=== PATIENT | male | born 1965 | race Caucasian/White ===

== ENCOUNTER 2017-08-17 09:44 | Observation (INO) | payer OTHER ==
[~2017-08-17] VITALS: Ht 172.7 cm; Wt 68.0 kg
[~2017-08-17 09:44] MED LIST: ASPI325T PO; PERC5TAB12 PO; ZANT150T2 PO
[2017-08-17 10:06] VITALS: BP 134/78; PULSE 73; RESP 16; TEMP 98; O2SAT 99
--- NOTE | 2017-08-17 10:32 | RADRPT ---
EXAM DATE/TIME: 08/17/2017 10:18 [facility] COMPARISON: No previous studies available for comparison. INDICATIONS : Chest pain. MEDICAL HISTORY : None. SURGICAL HISTORY : None. ENCOUNTER: Initial ACUITY: 1 day PAIN SCORE: 3/10 LOCATION: Bilateral chest FINDINGS: PA and lateral views of the chest demonstrate the lungs to be symmetrically aerated without evidence of mass, infiltrate or effusion. The cardiomediastinal contours are unremarkable. Osseous structure s are intact. CONCLUSION: Normal examination for a patient of this age. Home Lombardo MD on August 17, 2017 at 10:30 Board Certified Radiologist. This report was verified electronically.
[2017-08-17 11:02] LABS: AUTOMATED NEUTROPHIL # 3.3 TH/MM3 (1.8-7.7); BASOPHIL # 0.1 TH/MM3 (0-0.2); BASOPHIL % 2.4 % (0.0-2.0); EOSINOPHIL # 0.2 TH/MM3 (0-0.4); EOSINOPHIL % 3.2 % (0.0-4.0); HEMOGLOBIN 16.2 GM/DL (13.0-17.0); LYMPH % 22.9 % (9.0-44.0); LYMPHOCYTE # 1.2 TH/MM3 (1.0-4.8); MEAN CELL VOLUME 85.4 FL (80.0-100.0); MEAN CORPUSCULAR HEMOGLOBIN 29.5 PG (27.0-34.0); MEAN CORPUSCULAR HGB CONC 34.5 % (32.0-36.0); MEAN PLATELET VOLUME 8.2 FL (7.0-11.0); MONO % 7.5 % (0.0-8.0); MONOCYTE # 0.4 TH/MM3 (0-0.9); PLATELET COUNT 270 TH/MM3 (150-450); RED CELL DISTRIBUTION WIDTH 13.1 % (11.6-17.2); WHITE BLOOD COUNT 5.2 TH/MM3 (4.0-11.0)
[2017-08-17 11:12] LABS: PROTHROMBIN TIME - PATIENT 10.5 SEC (9.8-11.6)
[2017-08-17 11:18] LABS: BICARBONATE 26.6 MEQ/L (21.0-32.0); BLOOD UREA NITROGEN 24 MG/DL (7-18); CALCIUM 9.1 MG/DL (8.5-10.1); CHLORIDE 107 MEQ/L (98-107); CREATININE 1.18 MG/DL (0.60-1.30); GLOMERULAR FILTRATION RATE 65 ML/MIN (>89); GLUCOSE,RANDOM 68 MG/DL (74-106); SODIUM (NA) 140 MEQ/L (136-145)
[2017-08-17 11:23] LABS: TROPONIN I LESS THAN 0.02 NG/ML (0.02-0.05)
[2017-08-17 12:33] VITALS: BP 122/88; PULSE 71; RESP 17; O2SAT 98
[2017-08-17] MEDS ORDERED: TRAZ50TA12 PO (12:35)
[2017-08-17] MEDS ORDERED: ASPI-183 PO (12:35)
--- NOTE | 2017-08-17 12:44 | PD ---
HPI Chief Complaint: Cardiac Complaint Time Seen by Provider: 12:30 Travel History International Travel<30 days: No Contact w/Intl Traveler<30days: No Traveled to known affect area: No History of Present Illness HPI 51 y/o male presents with chest pain that started this morning and only lasted a short while. He states he had an additional episode about a month or so ago and he had a [facility] Cerv[facility]. He states they switched him to a nuclear stress test after about 45 seconds and he has not had the results of this yet. He states that he took 2 full aspirin this morning like he takes every morning for aches and pains. He denies any other concurrent complaints. Quality was sharp. Severity is currently resolved. He denies specific modifying factors. PFSH Past Medical History Chest Pain: Yes Influenza Vaccination: Yes Past Surgical History Other Surgery: Yes (HERNIA INFANT) Social History Alcohol Use: Yes (2 AR/NIGHT) Tobacco Use: No Substance Use: No Allergies-Medications (Allergen,Severity, Reaction): Coded Allergies: No Known Allergies (Unverified Adverse Reaction, Unknown, 08/17/17) Reported Meds & Prescriptions Reported Meds & Active Scripts Active Reported Aspirin 325 Mg Tab 325 Mg PO DAILY Trazodone (Trazodone HCl) 50 Mg Tab 50 Mg PO HS Review of Systems Except as stated in HPI: all other systems reviewed are Neg Physical Exam Narrative GENERAL: 51-year-old male in no apparent distress SKIN: Focused skin assessment warm/dry. HEAD: Atraumatic. Normocephalic. EYES: Pupils equal and round. No scleral icterus. No injection or drainage. ENT: No nasal bleeding or discharge. Mucous membranes pink and moist. NECK: Trachea midline. No JVD. CARDIOVASCULAR: Regular rate and rhythm. RESPIRATORY: No accessory muscle use. Clear to auscultation. Breath sounds equal bilaterally. GASTROINTESTINAL: Abdomen soft, non-tender, nondistended. Hepatic and splenic margins not palpable. MUSCULOSKELETAL: No obvious deformities. No clubbing. No cyanosis. No edema. NEUROLOGICAL: Awake and alert. No obvious cranial nerve deficits. Motor grossly within normal limits. Normal speech. PSYCHIATRIC: Appropriate mood and affect; insight and judgment normal. Data Data Last Documented VS Vital Signs Date Time Temp Pulse Resp B/P (MAP) Pulse Ox O2 Delivery O2 Flow Rate FiO2 08/17/17 12:33 71 17 122/88 (99) 98 Room Air 08/17/17 10:06 98.0 Orders Orders Electrocardiogram (08/17/17 10:09) Complete Blood Count With Diff (08/17/17 10:09) Basic Metabolic Panel (Bmp) (08/17/17 10:09) Ckmb (Isoenzyme) Profile (08/17/17 10:09) Troponin I (08/17/17 10:09) Iv Access Insert/Monitor (08/17/17 10:09) Ecg Monitoring (08/17/17 10:09) Oxygen Administration (08/17/17 10:09) Oximetry (08/17/17 10:09) Chest, Pa & Lat (08/17/17 ) Act Partial Throm Time (Ptt) (08/17/17 10:09) Prothrombin Time / Inr (Pt) (08/17/17 10:09) CKMB (08/17/17 10:30) CKMB% (08/17/17 10:30) Admit Order (Ed Use Only) (08/17/17 12:38) Labs Laboratory Tests Test 08/17/17 10:30 White Blood Count 5.2 TH/MM3 Red Blood Count 5.50 MIL/MM3 Hemoglobin 16.2 GM/DL Hematocrit 47.0 % Mean Corpuscular Volume 85.4 FL Mean Corpuscular Hemoglobin 29.5 PG Mean Corpuscular Hemoglobin Concent 34.5 % Red Cell Distribution Width 13.1 % Platelet Count 270 TH/MM3 Mean Platelet Volume 8.2 FL Neutrophils (%) (Auto) 64.0 % Lymphocytes (%) (Auto) 22.9 % Monocytes (%) (Auto) 7.5 % Eosinophils (%) (Auto) 3.2 % Basophils (%) (Auto) 2.4 % Neutrophils # (Auto) 3.3 TH/MM3 Lymphocytes # (Auto) 1.2 TH/MM3 Monocytes # (Auto) 0.4 TH/MM3 Eosinophils # (Auto) 0.2 TH/MM3 Basophils # (Auto) 0.1 TH/MM3 CBC Comment DIFF FINAL Differential Comment Prothrombin Time 10.5 SEC Prothromb Time International Ratio 1.0 RATIO Activated Partial Thromboplast Time 25.0 SEC Blood Urea Nitrogen 24 MG/DL Creatinine 1.18 MG/DL Random Glucose 68 MG/DL Calcium Level 9.1 MG/DL Sodium Level 140 MEQ/L Potassium Level 4.2 MEQ/L Chloride Level 107 MEQ/L Carbon Dioxide Level 26.6 MEQ/L Anion Gap 6 MEQ/L Estimat Glomerular Filtration Rate 65 ML/MIN Total Creatine Kinase 165 U/L Creatine Kinase MB 3.7 NG/ML Troponin I LESS THAN 0.02 NG/ML MDM Medical Decision Making Medical Screen Exam Complete: Yes Emergency Medical Condition: Yes Medical Record Reviewed: Yes (past history confirmed) Interpretation(s) EKG is sinus rhythm at 60 with EKG changes similar to prior from July CBC & BMP Diagram 08/17/17 10:30 Calcium Level 9.1 Last 24 hours Impressions Chest X-Ray 08/17/17 0000 Signed Impressions: Service Date/Time: Thursday, August 17, 2017 10:18 - CONCLUSION: Normal examination for a patient of this age. Home Lombardo MD Mild CK-MB elevation Differential Diagnosis NC, gastritis, musculoskeletal Narrative Course Will discuss with cardiology. Currently pain-free patient updated and agrees to admit Physician Communication Physician Communication dr sumner states to get copy of outpatient stress test and place in the [facility] Diagnosis Primary Impression: Chest pain Qualified Codes: R07.9 - Chest pain, unspecified Admitting Information Admitting Physician Requests: Observation Candie Snow MD Aug 17, 2017 12:44
[2017-08-17 14:34] LABS: TROPONIN I LESS THAN 0.02 NG/ML (0.02-0.05)
[2017-08-17] MEDS ORDERED: ACETAMINOPHEN/HYDROcodone 325 MG/7.5 MG TAB PO PRN (14:45)
[2017-08-17] MEDS ORDERED: ONDANSETRON HCL 4 MG/2 ML VIAL IV PUSH PRN (14:45)
[2017-08-17] MEDS ORDERED: ALPRAZolam 0.25 MG TAB PO PRN (14:45)
[2017-08-17] MEDS ORDERED: ACETAMINOPHEN 500 MG CPLT PO PRN (14:45)
--- NOTE | 2017-08-17 14:45 | EKG ---
Date Performed: 08/17/2017 Time Performed: 10:24:50 PTAGE: 51 years EKG: Sinus rhythm SEPTAL MYOCARDIAL INFARCTION PREVIOUS TRACING : 10/19/2013 22.17 No significant change from previous tracing noted. DOCTOR: Chinmay Durant Interpretating Date/Time 08/17/2017 14:43:54
[2017-08-17] MEDS ORDERED: PANTOPRAZOLE SOD 40 MG DELAYED RELEASE TAB PO SCH (15:00)
--- NOTE | 2017-08-17 15:14 | HHI.HP ---
HPI Primary Care Physician Zaynab [facility] Chief Complaint Chest pain History of Present Illness This is a 51-year-old male presents to ED to be evaluated for chest discomfort. States that for the last 2-3 months he has had intermittent discomfort just left of the center of his sternum. His occurred while playing racquetball and is also occurred while doing minimal house chores. When it occurs last for 30 seconds and is described as a heaviness. He notes that he has become short of breath with the symptoms sometimes. No nausea or diaphoresis. States he is very active. Plays racquetball for 2 hours a times a week. Also does other exercises including weights. Denies history of hyperlipidemia and in fact states that his HDL is 92. Lifetime non-smoker but there is family history of heart disease. States his father had an CA in 6 to his mother had an CA at 76. He went to the [place] for this a few weeks ago and had a outpatient stress test. He states that he was on the treadmill for about 45 seconds and at that time it was discontinued. States he developed a rate dependent left bundle branch block. Was told that he would have a chemical stress test ordered that he has not been given appointment for this. Review of Systems General: Patient denies fevers, chills, and recent travel. HEENT: Patient denies headache, sore throat, difficulty swallowing. Cardiovascular: Has the chest discomfort as mentioned above. Denies sensation of heart beating rapidly or irregularly. No syncope. Denies diaphoresis. Respiratory: Occasional shortness of breath. Denies inspirational chest discomfort. Denies coughing wheezing or hemoptysis. GI: Patient denies nausea, vomiting, diarrhea, abdominal pain, bloody stools. Musculoskeletal: Patient denies joint pain or edema. Denies calf pain or edema. Neurovascular: Patient denies numbness, tingling, weakness in extremities. Denies headache. Endocrine: Denies polyuria and polydipsia. Hematologic: Denies easy bruising. Skin: Denies rash or itching. Past Family Social History Allergies: Coded Allergies: No Known Allergies (Unverified Allergy, Unknown, 08/17/17) Past Medical History Denies hypertension, hyperlipidemia, diabetes, and CAD. Past Surgical History Hernia repair. Vasectomy. Reported Medications Reported Meds & Active Scripts Active Reported Aspirin 325 Mg Tab 325 Mg PO DAILY Trazodone (Trazodone HCl) 50 Mg Tab 50 Mg PO HS Active Ordered Medications Current Medications Medications (Trade) Dose Ordered Sig/Claire Route Start Time Stop Time Status Last Admin (Tylenol) 500 mg Q4H PRN PO 08/17/17 14:45 ([place] 7.5-325 Mg) 1 tab Q4H PRN PO 08/17/17 14:45 (Zofran Inj) 4 mg Q6H PRN IV PUSH 08/17/17 14:45 (Protonix) 40 mg DAILY PO 08/17/17 15:00 (Aspirin) 325 mg DAILY PO 08/18/17 09:00 (Xanax) 0.25 mg Q8H PRN PO 08/17/17 14:45 Family History States that his father had an CA at 62 and his mother had an CA at 76. Social History Lifetime non-smoker. Denies illicit drugs. Has on average 2 glasses of wine a night. Physical Exam Vital Signs Vital Signs Date Time Temp Pulse Resp B/P (MAP) Pulse Ox O2 Delivery O2 Flow Rate FiO2 08/17/17 12:33 71 17 122/88 (99) 98 Room Air 08/17/17 10:06 98.0 73 16 134/78 (96) 99 Physical Exam GENERAL: This is a well-nourished, well-developed patient, in no apparent distress. Patient speaks in clear complete sentences. Patient is pleasant. HEENT: Head is atraumatic and normocephalic. Neck is supple without lymphadenopathy and trachea is midline. No JVD or carotid bruits. CARDIOVASCULAR: Regular rate and rhythm without murmurs, gallops, or rubs. RESPIRATORY: Clear to auscultation. Breath sounds equal bilaterally. No wheezes , rales, or rhonchi. Chest wall is nontender. No use of accessory muscles. GASTROINTESTINAL: Abdomen is nontender, nondistended. Abdomen soft. No obvious pulsatile mass or bruit. No CVA tenderness. Strong femoral pulses bilaterally. Normal bowel sounds in all quadrants. MUSCULOSKELETAL: Patient is moving upper and lower extremities freely. No calf tenderness or edema, no Homans sign. Strong pulses in upper and lower extremities. NEUROLOGICAL: Patient is alert and oriented. Cranial nerves 2-12 are grossly intact. No focal deficits and speech is clear. SKIN: No rash and turgor is normal. Laboratory Laboratory Tests Test 08/17/17 10:30 3/20/18 13:25 White Blood Count 5.2 Red Blood Count 5.50 Hemoglobin 16.2 Hematocrit 47.0 Mean Corpuscular Volume 85.4 Mean Corpuscular Hemoglobin 29.5 Mean Corpuscular Hemoglobin Concent 34.5 Red Cell Distribution Width 13.1 Platelet Count 270 Mean Platelet Volume 8.2 Neutrophils (%) (Auto) 64.0 Lymphocytes (%) (Auto) 22.9 Monocytes (%) (Auto) 7.5 Eosinophils (%) (Auto) 3.2 Basophils (%) (Auto) 2.4 Neutrophils # (Auto) 3.3 Lymphocytes # (Auto) 1.2 Monocytes # (Auto) 0.4 Eosinophils # (Auto) 0.2 Basophils # (Auto) 0.1 CBC Comment DIFF FINAL Differential Comment Prothrombin Time 10.5 Prothromb Time International Ratio 1.0 Activated Partial Thromboplast Time 25.0 Blood Urea Nitrogen 24 Creatinine 1.18 Random Glucose 68 Calcium Level 9.1 Sodium Level 140 Potassium Level 4.2 Chloride Level 107 Carbon Dioxide Level 26.6 Anion Gap 6 Estimat Glomerular Filtration Rate 65 Total Creatine Kinase 165 148 Creatine Kinase MB 3.7 3.3 Troponin I LESS THAN 0.02 LESS THAN 0.02 Result Diagram: 08/17/17 1030 08/17/17 1030 Imaging Last 48 hours Impressions Chest X-Ray 08/17/17 0000 Signed Impressions: Service Date/Time: Thursday, August 17, 2017 10:18 - CONCLUSION: Normal examination for a patient of this age. Home Lombardo MD Course Initial EKG is sinus rhythm rate of 63 and second EKG sinus bradycardia rate of [address] segment depressions or elevations. Caprini VTE Risk Assessment Caprini VTE Risk Assessment: No/Low Risk (score <= 1) Caprini Risk Assessment Model Point Value = 1 Point Value = 2 Point Value = 3 Point Value = 5 Age 41-60 Minor surgery BMI > 25 kg/m2 Swollen legs Varicose veins or History of unexplained or recurrent spontaneous Oral contraceptives or hormone replacement Sepsis (< 1 month) Serious lung disease, including pneumonia (< 1 month) Abnormal pulmonary function Acute myocardial infarction Congestive heart failure (< 1 month) History of inflammatory bowel disease Medical patient at bed rest Age 61-74 Arthroscopic surgery Major open surgery (> 45 min) Laparoscopic surgery (> 45 min) Malignancy Confined to bed (> 72 hours) Immobilizing plaster cast Central venous access Age >= 75 History of VTE Family history of VTE Factor V Leiden Prothrombin [id number] Lupus anticoagulant Anticardiolipin antibodies Elevated serum homocysteine Heparin-induced thrombocytopenia Other congenital or acquired thrombophilia Stroke (< 1 month) Elective arthroplasty Hip, pelvis, or leg fracture Acute spinal cord injury (< 1 month) Prophylaxis Regimen Total Risk Factor Score Risk Level Prophylaxis Regimen 0-1 Low Early ambulation 2 Moderate Order ONE of the following: *Sequential Compression Device (SCD) *Heparin 5000 units SQ BID 3-4 Higher Order ONE of the following medications: *Heparin 5000 units SQ TID *Enoxaparin/Lovenox 40 mg SQ daily (WT < 150 kg, CrCl > 30 mL/min) *Enoxaparin/Lovenox 30 mg SQ daily (WT < 150 kg, CrCl > 10-29 mL/min) *Enoxaparin/Lovenox 30 mg SQ BID (WT < 150 kg, CrCl > 30 mL/min) AND/OR *Sequential Compression Device (SCD) 5 or more Highest Order ONE of the following medications: *Heparin 5000 units SQ TID (Preferred with Epidurals) *Enoxaparin/Lovenox 40 mg SQ daily (WT < 150 kg, CrCl > 30 mL/min) *Enoxaparin/Lovenox 30 mg SQ daily (WT < 150 kg, CrCl > 10-29 mL/min) *Enoxaparin/Lovenox 30 mg SQ BID (WT < 150 kg, CrCl > 30 mL/min) AND *Sequential Compression Device (SCD) Assessment and Plan Assessment and Plan * Chest pain: Patient has had first 2 sets of cardiac enzymes and EKGs. He will be seen by Dr. Torres of cardiology in the chest pain center. He will have a CTA of the coronaries. He will be discharged home if the CTA does not reveal significant stenosis. He should follow-up with his PCP. Return to ED for interval issues. Patient is stable at this time. He is agreeable to this plan. Nash Cueva Aug 17, 2017 15:14
[2017-08-17 16:23] VITALS: BP 128/78; PULSE 60; RESP 16; TEMP 98; O2SAT 98
[2017-08-17] MEDS ORDERED: NITROGLYCERIN 0.4 MG SL 25 TABS/BTL SL ONE (16:54)
[2017-08-17 17:00] VITALS: BP 135/75; PULSE 56; RESP 16; O2SAT 98
[2017-08-17] MEDS ORDERED: IOHEXOL 350 MG/ML 10 ML VIAL (for RAD DIAG) IVCONTRAST ONE (17:06)
[2017-08-17] MEDS ORDERED: KETOROLAC TROMETHAMINE 30 MG/ML (IVP) VIAL IVP ONE (17:15)
[2017-08-17 17:27] VITALS: BP 111/64; PULSE 61; RESP 16; O2SAT 98
--- NOTE | 2017-08-17 18:04 | HHI.DCPOC ---
Discharge Care Plan Diagnosis: (1) Chest pain Goals to Promote Your Health * To prevent worsening of your condition and complications * To maintain your health at the optimal level Directions to Meet Your Goals Take your medications as prescribed Follow your dietary instruction Follow activity as directed Keep your appointments as scheduled Take your immunizations and boosters as scheduled If your symptoms worsen call your PCP, if no PCP go to Urgent Care Center or Emergency Room Smoking is Dangerous to Your Health. Avoid second hand smoke Call the 24-hour hour crisis hotline for domestic abuse at Nash Cueva Aug 17, 2017 18:03
--- NOTE | 2017-08-17 23:15 | RADRPT ---
EXAM DATE/TIME: 08/17/2017 17:06 [facility] COMPARISON: No previous studies available for comparison. INDICATIONS : Chest pain IV CONTRAST: 90 cc Omnipaque 350 (iohexol) IV RADIATION DOSE: 3.62 CTDIvol (mGy) MEDICAL HISTORY : None SURGICAL HISTORY : None. ENCOUNTER: Initial ACUITY: 1 day PAIN SCALE: 7/10 LOCATION: Bilateral chest TECHNIQUE: Volumetric scanning was obtained through the heart. Images were acquired on a multislice multiple ro w detector helical scanner timed for acquisition during peak arterial contrast. Images were reconstr ucted using a retrospective gating algorithm including single sector and multi-sector algorithms at m ultiple phases of the cardiac cycle. Images were interpreted using a combination of 2D and 3D visual ization modes including curved planar reformation, thin slab maximum intensity projection and volume rendering. Using automated exposure control and adjustment of the mA and/or kV according to patient size, radiation dose was kept as low as reasonably achievable to obtain optimal diagnostic quality im ages. DICOM format image data is available electronically for review and comparison. FINDINGS: VESSEL ANALYSIS: DOMINANCE: The coronary system is right dominant. LEFT MAIN: Normal vessel without calcification or stenosis. LAD: Normal vessel without calcification or stenosis. CIRCUMFLEX: Normal vessel without calcification or stenosis. RCA: Normal vessel without calcification or stenosis. OTHER: None. CONCLUSION: Normal CTA coronary arteries. Calcium score is zero. Xavier Andre MD on August 17, 2017 at 23:08 Board Certified Radiologist. This report was verified electronically.
[2017-08-18] MEDS ORDERED: ASPIRIN 325 MG TAB PO SCH (09:00)
--- NOTE | 2017-08-18 20:54 | EKG ---
Date Performed: 08/17/2017 Time Performed: 13:32:31 PTAGE: 51 years EKG: SINUS BRADYCARDIA SEPTAL MYOCARDIAL INFARCTION ABNORMAL ECG PREVIOUS TRACING : 08/17/2017 10.24 Since the previous tracing, no significant change noted DOCTOR: Osmany Akers Interpretating Date/Time 08/18/2017 20:52:57
== END 2017-08-18 01:16 | disposition home or self-care (01) ==
LOC: NEPE 09:44 → NEDA 12:39 → NEPGCP 16:17
PROVIDERS: ADMIT Internal Medicine Interventional Cardiology; ATTEND Internal Medicine Interventional Cardiology
DX: R07.89 Other chest pain (principal); R06.02 Shortness of breath; R00.1 Bradycardia, unspecified; R94.31 Abnormal electrocardiogram [ECG] [EKG]; I44.7 Left bundle-branch block, unspecified; Z79.82 Long term (current) use of aspirin; Z82.49 Family history of ischemic heart disease and other diseases of the circulatory system
CPT/HCPCS: 71046; 75574; 80048; 82550; 82552; 84484; 85025; 85610; 85730; 93005; 99285; G0378; Q9967